=== PATIENT | female | born 1990 | race Caucasian/White ===

== ENCOUNTER 2019-01-02 09:16 | Emergency (ER) | payer OTHER | END 2019-01-02 12:50 | disposition home or self-care (01) | LOC: FTE 09:16 | DX: S99.922A Unspecified injury of left foot, initial encounter (principal); W22.8XXA Striking against or struck by other objects, initial encounter; Y92.89 Other specified places as the place of occurrence of the external cause | CPT/HCPCS: 73610; 73630; 73630-LT; 81025; 99284-25 ==